=== PATIENT | female | born 1995 | race African-American/Black ===

== ENCOUNTER → 2017-05-12 | Outpatient (CLI) | payer OTHER ==
[~2017-05-12] MED LIST: MULT-506 PO
--- NOTE | 2017-05-12 09:09 | DIAGNOSTIC IMAGING REPORT ---
MRI OF THE RIGHT KNEE WITHOUT CONTRAST CLINICAL HISTORY: Right knee pain following injury. Previous ACL reconstruction. COMPARISON STUDY: MRI of the right knee August 06, 2015 and right knee radiographs February 25, 2016. TECHNIQUE: Utilizing a 1.5 Jocy magnet and dedicated coil, multiplanar, multiecho imaging of the right knee was performed without intravenous or intraarticular contrast. FINDINGS: Note is made of previous ACL reconstruction. The graft is not well visualized and is indistinct. This is consistent with a complete graft tear. The posterior cruciate ligament is intact. The lateral collateral ligament complex and medial collateral ligament are intact. There is a large right knee joint effusion. Foci of susceptibility artifact at the periphery of the joint effusion are likely post surgical. The body of the medial meniscus is somewhat diminutive but no medial meniscal tear is identified. Best shown on coronal image 19 of 30, there is an oblique tear of the body and posterior horn of the lateral meniscus which is new since MRI of August 06, 2015. Note is made of mild edema within the lateral femoral condyle with impaction injury. There is mild edema within the posterior aspect of the lateral tibial plateau with no associated fracture. No high-grade chondrosis is noted. IMPRESSION: 1. Complete tear of the ACL graft. 2. Large right knee joint effusion. 3. Typical bone bruise pattern seen in the setting of an ACL tear, involving the lateral femoral condyle and posterior aspect of the lateral tibial plateau. 4. Oblique tear of the body and posterior horn of the lateral meniscus. 5. No medial meniscal tear identified. Possible previous partial meniscectomy of the medial meniscus. Electronically signed by: Ottoniel Savage M.D. 05/12/2017 9:08 AM Dictated Date/Time: 05/12/2017 8:51 AM
== END | disposition home or self-care (01) ==
LOC: C.MRIBC 08:01
PROVIDERS: ATTEND Orthopaedic Surgery Sports Medicine
DX: Z87.39 Personal history of other diseases of the musculoskeletal system and connective tissue (principal); T84.498A Other mechanical complication of other internal orthopedic devices, implants and grafts, initial encounter; X58.XXXA Exposure to other specified factors, initial encounter; M25.461 Effusion, right knee; T14.8 Other injury of unspecified body region; S83.281A Other tear of lateral meniscus, current injury, right knee, initial encounter

== ENCOUNTER 2017-06-26 04:13 | Emergency (ER) | payer OTHER ==
[~2017-06-26] VITALS: Ht 167.6 cm; Wt 65.0 kg
[2017-06-26 04:34] VITALS: BP 128/64; PULSE 74; TEMP 36.8; O2SAT 99; Ht 167.6 cm; Wt 65.0 kg
--- NOTE | 2017-06-26 04:54 | EMERGENCY ROOM VISIT NOTE ---
ED Visit Note First contact with patient: 04:34 CHIEF COMPLAINT: Ear foreign body HISTORY OF PRESENT ILLNESS: This 22-year-old female patient presents to the emergency department by personal vehicle complaining of an earring stuck in her left earlobe. Patient states she was trying to take earring out about an hour ago, but she has been able to take it out. She feels that she has caused some irritation to the earlobe and now it is painful. She denies any bleeding from the earlobe. She denies any redness, swelling, pus drainage from the area. She denies any other concerns. The patient's tetanus shot is up to date. REVIEW OF SYSTEMS: A 6 system review of systems was completed with positives and pertinent negatives listed in the HPI. ALLERGIES: No known allergies MEDICATIONS: Reviewed in chart PMH: No significant past medical or surgical history. SOCIAL HISTORY: Lives at home. She is a [employer] student. She denies tobacco use. PHYSICAL EXAM: Vital Signs: Reviewed Nurse's notes, vital signs stable. GENERAL : Pleasant and cooperative, in no acute distress, well-developed, well- nourished. NEURO: The patient is alert and oriented to person place and time. No focal neurological defect. EYES: Pupils are equal round and reactive to light and accommodation. EOMI intact. EAR: There is a small stud earring located in the second hole of the left earlobe, there is no swelling, erythema, warmth or tenderness to palpation, no signs of infection. There is no active bleeding and no foreign material in the wound. Capillary refill less than two seconds. Normal sensation to light and sharp touch. EMERGENCY DEPARTMENT COURSE: I examined the patient. Verbal consent was obtained to perform the procedure. Attempt was made to remove the earring back by hand, which was unsuccessful. I then attempted to remove the earring back with the use of hemostats, again I was unsuccessful. I then obtained permission from the patient and used a metal reed tuner pliers to cut the tip off of the earring, it was then easily removed from the piercing. There was no bleeding. The area was cleaned with an alcohol prep and left open. The patient was discharged home in good condition. Current/Historical Medications Scheduled Multivitamin (Multivitamin), 1 TAB PO QAM Allergies Coded Allergies: No Known Allergies (Unverified , 06/26/17) Vital Signs Date Time Temp Pulse Resp B/P (MAP) Pulse Ox O2 Delivery O2 Flow Rate FiO2 06/26/17 04:34 36.8 74 18 128/64 99 Room Air Departure Information Impression Primary Impression: Foreign body in ear lobe Dispostion Home / Self-Care Condition GOOD Referrals No Doctor, Assigned (PCP) Patient Instructions My [facility] Additional Instructions Monitor piercing for any signs of ongoing irritation or developing infection, including redness, swelling, pain, or pus drainage. You may resume wearing earrings in this pierced hole after a few days. Follow up with your PCP as needed. Problem Qualifiers Primary Impression: Foreign body in ear lobe Encounter type: initial encounter Laterality: left Qualified Codes: S00.452A - Superficial foreign body of left ear, initial encounter
== END 2017-06-26 05:04 | disposition home or self-care (01) ==
LOC: C.EDB 04:15 → C.EDA 05:04
DX: S00.452A Superficial foreign body of left ear, initial encounter (principal); W45.8XXA Other foreign body or object entering through skin, initial encounter